=== PATIENT | female | born 1955 ===

== ENCOUNTER 2018-11-21 09:33 | Day surgery (SDC) | payer OTHER ==
[2018-11-21 10:47] VITALS: BMI 23.3
[2018-11-21] MEDS ORDERED: Lactated Ringer's 500 ML IV ONE (11:12)
[2018-11-21] MEDS ORDERED: Midazolam 2 MG/2 ML VIAL ONE (11:57)
[2018-11-21] MEDS ORDERED: Propofol 10 mg/ml Inj (20 ML) ONE (11:57)
[2018-11-21 12:34] VITALS: TEMP 98; O2SAT 98
[2018-11-21 12:54] VITALS: BP 105/58; PULSE 87; RESP 21
== END 2018-11-21 13:53 | disposition home or self-care (01) ==
LOC: H.ENDO 09:33
PROVIDERS: ATTEND Internal Medicine Gastroenterology
DX: Z12.11 Encounter for screening for malignant neoplasm of colon (principal); E78.5 Hyperlipidemia, unspecified; M81.0 Age-related osteoporosis without current pathological fracture; R06.83 Snoring; K64.8 Other hemorrhoids
CPT/HCPCS: 45378; J2001; J2250; J2704; J7120